=== PATIENT | male | born 1970 | race Caucasian/White ===

== ENCOUNTER 2016-07-13 19:19 | Observation (INO) | payer MEDICARE, MEDICAID ==
[~2016-07-13] VITALS: Ht 177.8 cm; Wt 63.5 kg
[2016-07-13] VITALS (10 sets, daily range): BP systolic 145–167; BP diastolic 92–113
[~2016-07-13 19:19] MED LIST: ABCT PO; ACHD5005 PO; AMIT75TA2 PO; ASP325T PO; ASP325TEC PO; ASP81CT PO; ASP81TEC PO; ASPI-875 PO; ASPI-892 PO; ASPI-9 PO; ASPI-906 PO; ATOR20TA66 PO; ATOR40TA PO; ATOR40TA70 PO; ATOR80TA2 PO; ATRV10T; BACL10TA PO; BACL20TA PO; BSP5T PO; BUSPIRONE 7.5MG PO; BUTA-234 PO; CALC-889 PO; CARV12.52 PO; CARV12.53 PO; CARV6.252 PO; CEPH500C PO; CHLO500T2 PO; CIPR500T78 PO; CITA40TA19 PO; CLIN300C11 PO; CLN150C PO; CLOP75TA PO; CLOP75TA28 PO; CLOP75TA69 PO; CLPD75T PO; CYCL10TA9 PO; CYCL5TAB11 PO; DESV50TA PO; DEXL30CA2 PO; DEXL60CA PO; DEXL60CA5 PO; DIAZ10TA PO; DICL75TA2 PO; DICY20TA10 PO; DIVA250T2 PO; DIVA250T4 PO; DIVA500T15 PO; DOXY100C2 PO; DULO30CA PO; ENXP100I SC; ESCI20TA2; FAMO40TA39 PO; FENO105T3 PO; FENO135C PO; FENO135C4 PO; FEXO180T PO; FL025NA25; FLUT50DI IH; FLUT9.9S NS; FNT25TD TD; FURO40TA4 PO; GABA-490 PO; GABA100C PO; GABA250S2 PO; GABA600T2 PO; GABA800T PO; GABA800T2 PO; GBPN100C PO; GBPN600T PO; GUAI400T35; HCT25T PO; HYDR-34 PO; HYDR-3714 PO; HYDR-3812 PO; HYDR-757 PO; HYOS0.1216 PO; IRON15TA3 PO; ISM30TCR PO; ISM60TCR PO; ISOS20TA73 PO; ISOS30TA3 PO; Isosorbide Mononitrate PO; KCL20TCR PO; LACT1CAP62 PO; LD5PT TOP; LEVO5TAB2; LEXAPRO; LIDO1ADH TP; LIDOCAINE; LIDOCAINE PATCH; LINA290C PO; LISI10TA2 PO; LISI20TA PO; LORA10CA PO; LSNP10T PO; LSNP20T PO; Levofloxacin PO; MELO-170 PO; META-84 PO; META800T PO; METH-313 PO; METH4TAB PO; METH750T3 PO; METO-351 PO; METO-354 PO; METO10TA3 PO; METO50TA7 PO; METR500T PO; MMT17NA NS; MULT-633 PO; NITR0.4T SL; NTR.4SL SL; OMEG1CAP24 PO; OMEP20CA12 PO; ONDA-42 SL; ONDA8TAB13 PO; ONDA8TAB6 PO; OSLT75CRX PO; OXYC-188 PO; OXYC-201 PO; OXYC-202 PO; OXYC-272; OXYC-272 PO; OXYC-471; OXYC15TA79 PO; OXYC1TAB19 PO; OXYC20TA4 PO; OXYC5TAB PO; OXYC80TA4; PANT20TA PO; PANT20TA2 PO; PANT40TA PO; PNT40TEC PO; POLY17PO6 PO; PRED10TA PO; PRED20TA PO; PREG50C PO; SCR1T PO; SCR1T1 PO; SENN1TAB27 PO; SULF1TAB35 PO; TIZA4TAB55 PO; TRAM-21 PO; TRAM50TA2 PO; TRI; UNKOWN CHOLESTEROL; VARE1TAB17 PO; VERA240C2 PO; VERA240T98 PO; VIT1TABL57 PO; VOLTAREN PO; ZLP10T; [UNRECOGNIZED DRUG - OTHER]; [UNRECOGNIZED DRUG - OTHER] PO; [UNRECOGNIZED DRUG - REMARK]
[2016-07-13] MEDS ORDERED: ASPIRIN 81 MG CHEW (CHILDREN'S ASA) PO ONE (19:30)
[2016-07-13 19:36] LABS: BASOPHILS % (AUTO) 0 % (0-10); EOSINOPHILS % (AUTO) 0 % (0-10); LYMPHOCYTES # (AUTO) 1.5 X 10^3 (1.0-4.0); LYMPHOCYTES % (AUTO) 20 % (12-44); MEAN CORPUSCULAR HEMOGLOBIN 28 PG (25-34); MEAN CORPUSCULAR HGB CONC 33 G/DL (32-36); MEAN CORPUSCULAR VOLUME 84 FL (80-99); MEAN PLATELET VOLUME 10.8 FL (7.4-10.4); MONOCYTES # (AUTO) 0.6 X 10^3 (0.0-1.0); MONOCYTES % (AUTO) 8 % (0-12); NEUTROPHILS # (AUTO) 5.4 X 10^3 (1.8-7.8); NEUTROPHILS % (AUTO) 71 % (42-75); PLATELET COUNT 235 10^3/uL (130-400); RED CELL DISTRIBUTION WIDTH 15.3 % (10.0-14.5); WHITE BLOOD COUNT 7.6 10^3/uL (4.3-11.0)
--- NOTE | 2016-07-13 19:38 | ED Chest Pain ---
General Chief Complaint: Chest Pain Stated Complaint: CHEST PAIN Nursing Triage Note: Pt to ED via [facility] from home. Pt reports sudden onset of CP at 1800 tonight. Pt reports pain 6/10at onset, pt now rating pain 2/10. 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 Nursing Sepsis Screen: No Definite Risk Source: patient Exam Limitations: no limitations History of Present Illness Time seen by provider: 19:36 Initial Comments Onset of substernal chest pressure at rest at 6 p.m. tonight. He took aspirin and nitroglycerin at home which helped his pain. He called 911. Aspirin here in stable condition by EMS. Pain is currently 2 out of 10. Allergies and Home Medications Allergies Coded Allergies: Penicillins (Verified Allergy, Unknown, 05/02/13) Shellfish (Verified Allergy, Unknown, 04/12/07) promethazine (Verified Adverse Reaction, Mild, 12/19/13) JITTERS/ LEG TWITCHING Home Medications Acetamin/Butalbital/Caffeine 1 Tab Tab, 1-2 TAB PO Q6H PRN for MIGRAINE, ( Reported) Aspirin 81 Mg Tab.chew, 81 MG PO DAILY, (Reported) Atorvastatin Calcium 40 Mg Tablet, 40 MG PO DAILY, (Reported) Baclofen 20 Mg Tablet, 20 MG PO TID, (Reported) Calcium Carbonate/Vitamin D3 1 Each Tab.chew, 1 EACH PO DAILY, (Reported) Clopidogrel Bisulfate 75 Mg Tablet, 75 MG PO DAILY, (Reported) Dicyclomine Hcl 20 Mg Tablet, 20 MG PO QID PRN for ABDOMINAL PAIN, (Reported) Fenofibric Acid (Choline) 135 Mg Capsule.dr, 135 MG PO DAILY, (Reported) Fluticasone Propionate 1 Disk Inhp, 2 PUFF IH BID, (Reported) Fluticasone Propionate 9.9 Ml [place].susp, 2 SPRAYS NS PRN, (Reported) Gabapentin 400 Mg Capsule, 400 MG PO TID, (Reported) Gabapentin 600 Mg Tablet, 600 MG PO TID, (Reported) Loratadine 10 Mg Capsule, 10 MG PO DAILY, (Reported) Metaxalone 800 Mg Tablet, 1 TAB PO TID, #90 (Reported) Methylprednisolone 4 Mg Tab.ds.pk, 4 MG PO UD, #1 Prescribed by: SARAH MACHADO on 06/02/151 Metoprolol Succinate 25 Mg Tab.er.24h, 25 MG PO DAILY, (Reported) Multivitamin 1 Each Tablet, 1 TAB PO DAILY, (Reported) Nitroglycerin 0.4 Mg Tab.subl, 0.4 MG SL UD PRN for CHEST PAIN, (Reported) TAKE 1 TABLET EVERY 5 MINUTES X 3 DOSES NEEDED FOR CHEST PAIN Ondansetron 8 Mg Tab.rapdis, 8 MG PO Q8H PRN for NAUSEA, (Reported) Oxycodone HCl 15 Mg Tablet, 15 MG PO QID, (Reported) Oxycodone HCl/Acetaminophen 1 Each Tablet, #60 (Reported) Pantoprazole Sod 40 Mg Tab, 40 MG PO DAILY, (Reported) Polyethylene Glycol 3350 17 Gm Powd.pack, 17 GM PO BID, (Reported) Sucralfate 1 Gm/10 Ml Susp, 10 ML PO QID, (Reported) Verapamil HCl 240 Mg Cap24h.pel, 240 MG PO DAILY, (Reported) Review of Systems Constitutional: no symptoms reported Respiratory: No Symptoms Reported Cardiovascular: Chest Pain Gastrointestinal: No Symptoms Reported Genitourinary: No Symptoms Reported Musculoskeletal: no symptoms reported All Other Systems Reviewed Negative Unless Noted: Yes Past Ltoauce-Oylsqq-Ffcutl Hx Patient Social History Alcohol Use: Denies Use Recreational Drug Use: No Smoking Status: Current Everyday Smoker Type Used: Cigarettes Former Smoker/When Quit: Jun 13, 2012 Recent Foreign Travel: No Contact w/Someone Who Travel: No Recent Infectious Disease Expo: No Recent Hopitalizations: No Immunizations Up To Date Tetanus Booster (TDap): More than 5yrs Date of Pneumonia Vaccine: Jun 09, 2009 Date of Influenza Vaccine: Dec 19, 2014 Seasonal Allergies Seasonal Allergies: No Surgeries HX Surgeries: Yes (iliac stents; R vascular femoral sx; sternum wires removed , back,L5 S1 ) Surgeries: Abdominal, Cardiac, CABG, Coronary Stent, Gallbladder, Open Heart Surgery, Orthopedic, Vascular Surgery Respiratory Hx Respiratory Disorders: Yes (WEARS CPAP) Respiratory Disorders: Sleep Apnea Cardiovascular Hx Cardiac Disorders: Yes (Cardiac stent x1, Iliac stents x3) Cardiac Disorders: Coronary Artery Disease, Deep Vein Thrombosis, Heart Attack , High Cholesterol, Hypertension, Peripheral Vascular Neurological Hx Neurological Disorders: Yes Neurological Disorders: Headaches /Migraines, Neuropathy Reproductive System Hx Reproductive Disorders: Yes (GYNECOMASTIA SURGERY WHEN 10 YEARS OLD) Sexually Transmitted Disease: No HIV/AIDS: No Genitourinary Hx Genitourinary Disorders: No Gastrointestinal Gastrointestinal Disorders: Gastroesophageal Reflux, Irritable Bowel Musculoskeletal Hx Musculoskeletal Disorders: Yes (osteoarthritis, L3-S1 herniated disc, Chronic chest wall pain) Musculoskeletal Disorders: Degenerate Disk Disease, Osteoporosis, Arthritis, Back Injury, Chronic Back Pain Endocrine Hx Endocrine Disorders: No HEENT HX ENT Disorders: Yes (RIGHT EYE MACULAR DEGENERATION, WEARS GLASSES) HEENT Disorders: Cataract, Macular Degeneration Loss of Vision: Bilateral Hearing Impairment: Denies Cancer Hx Cancer: No Psychosocial Hx Psychiatric Problems: Yes Behavioral Health Disorders: Anxiety Integumentary HX Skin/Integumentary Disorder: No Blood Transfusions Hx Blood Disorders: No Adverse Reaction to a Blood Tr: No Reviewed Nursing Assessment Reviewed/Agree w Nursing PMH: Yes Family Medical History Significant Family History: No Pertinent Family Hx, Heart Disease, Diabetes, Hypertension Family Medial History: Cardiovascular disease 19 FATHER Completed stroke 19 FATHER Diabetes mellitus 19 FATHER 19 MOTHER Myocardial infarction 19 MOTHER TIAs 19 MOTHER Thyroid disease 19 MOTHER Physical Exam Vital Signs Vital Sign - Last 12Hours Capillary Refill : Less Than 3 Seconds General Appearance: No Apparent Distress, WD/WN HEENT: PERRL/EOMI, Pharynx Normal Neck: Supple Respiratory: Lungs Clear, Normal Breath Sounds Cardiovascular: Regular Rate, Rhythm, No Edema Gastrointestinal: Non Tender, Soft Extremity: Normal Inspection, Normal Range of Motion Neurologic/Psychiatric: Alert, No Motor/Sensory Deficits Skin: Normal Color, Warm/Dry Progress/Results/Core Measures Results/Orders Lab Results Laboratory Tests Test 07/13/16 19:24 Range/Units White Blood Count 7.6 4.3-11.0 10^3/uL Red Blood Count 5.30 4.35-5.85 10^6/uL Hemoglobin 14.8 13.3-17.7 G/DL Hematocrit 45 40-54 % Mean Corpuscular Volume 84 80-99 FL Mean Corpuscular Hemoglobin 28 25-34 PG Mean Corpuscular Hemoglobin Concent 33 32-36 G/DL Red Cell Distribution Width 15.3 H 10.0-14.5 % Platelet Count 235 130-400 10^3/uL Mean Platelet Volume 10.8 H 7.4-10.4 FL Neutrophils (%) (Auto) 71 42-75 % Lymphocytes (%) (Auto) 20 12-44 % Monocytes (%) (Auto) 8 0-12 % Eosinophils (%) (Auto) 0 0-10 % Basophils (%) (Auto) 0 0-10 % Neutrophils # (Auto) 5.4 1.8-7.8 X 10^3 Lymphocytes # (Auto) 1.5 1.0-4.0 X 10^3 Monocytes # (Auto) 0.6 0.0-1.0 X 10^3 Eosinophils # (Auto) 0.0 0.0-0.3 10^3/uL Basophils # (Auto) 0.0 0.0-0.1 10^3/uL Prothrombin Time 13.7 12.2-14.7 SEC INR Comment 1.1 0.8-1.4 Activated Partial Thromboplast Time 23 L 24-35 SEC Sodium Level 142 135-145 MMOL/L Potassium Level 3.6 3.6-5.0 MMOL/L Chloride Level 108 H 98-107 MMOL/L Carbon Dioxide Level 22 21-32 MMOL/L Anion Gap 12 5-14 MMOL/L Blood Urea Nitrogen 16 7-18 MG/DL Creatinine 1.00 0.60-1.30 MG/DL Estimat Glomerular Filtration Rate > 60 BUN/Creatinine Ratio 16 Glucose Level 92 70-105 MG/DL Calcium Level 9.5 8.5-10.1 MG/DL Magnesium Level 2.3 1.8-2.4 MG/DL Total Bilirubin 0.6 0.1-1.0 MG/DL Aspartate Amino Transf (AST/SGOT) 11 5-34 U/L Alanine Aminotransferase (ALT/SGPT) 16 0-55 U/L Alkaline Phosphatase 87 40-136 U/L Troponin I < 0.30 <0.30 NG/ML Total Protein 7.5 6.4-8.2 G/DL Albumin 4.6 H 3.2-4.5 G/DL My Orders Orders - CASSANDRA CARPENTER MD Cbc With Automated Diff (07/13/16 19:29) Magnesium (07/13/16 19:29) Chest 1 View, Ap/Pa Only (07/13/16 19:29) Ekg Tracing (07/13/16 19:29) Cardiac Profile 1 (07/13/16 19:29) Comprehensive Metabolic Panel (07/13/16 19:29) Protime With Inr (07/13/16 19:29) Partial Thromboplastin Time (07/13/16 19:29) O2 (07/13/16 19:29) Monitor-Rhythm Ecg Trace Only (07/13/16 19:29) Aspirin Chewable Tablet (Baby Aspirin Ch (07/13/16 19:30) Saline Lock/Iv-Start (07/13/16 19:29) Vital Signs/I&O Vital Sign - Last 12Hours 07/13/16 07/13/16 07/13/16 19:23 19:23 19:23 Temp 100.0 Pulse 61 Resp 18 B/P (MAP) 148/112 Pulse Ox 100 100 O2 Delivery Room Air Room Air Room Air Blood Pressure Mean: 124 ECG Initial ECG Rhythm: Normal Sinus Initial ECG Intervals: Normal Initial ECG Impression: Nonspecific Changes Diagnostic Imaging Comments CXR NAD Departure Communication Time/Spoke to Admitting Phy: 20:[address] MARROQUIN ([facility]) ADMIT Impression Impression: Primary Impression: Chest pain Disposition: ADMITTED INPATIENT Condition: Stable Decision to Admit Reason: Admit from ER (General) Decision to Admit/Date: July 14, 2016 Time/Decision to Admit Time: 20:00 Departure-Patient Inst. Referrals: JOSELINE SANCHEZ MD (PCP/Family) Primary Care Physician CASSANDRA CARPENTER MD July 13, 2016 19:38
[2016-07-13 19:41] LABS: INR 1.1 (0.8-1.4); PROTHROMBIN TIME PATIENT 13.7 SEC (12.2-14.7)
--- NOTE | 2016-07-13 19:44 | Diagnostic Imaging Report ---
INDICATION: Anterior chest wall pain Portable upright view of the chest demonstrates previous surgical changes. The heart size and vascularity are normal. Lungs are clear but slightly hyperexpanded, possible COPD. There are no pleural effusions. Postoperative changes are present in the cervical spine. IMPRESSION: Stable postoperative changes. The lungs are clear but hyperexpanded, possible underlying COPD. Dictated by: Dictated on workstation # [id number]
[2016-07-13 20:11] LABS: ALANINE AMINOTRANSFERASE 16 U/L (0-55); ALBUMIN 4.6 G/DL (3.2-4.5); ANION GAP 12 MMOL/L (5-14); ASPARTATE AMINO TRANSFERASE 11 U/L (5-34); BILIRUBIN,TOTAL 0.6 MG/DL (0.1-1.0); BLOOD UREA NITROGEN 16 MG/DL (7-18); BUN/CREATININE RATIO 16; CALCIUM 9.5 MG/DL (8.5-10.1); CARBON DIOXIDE 22 MMOL/L (21-32); CHLORIDE 108 MMOL/L (98-107); GFR ESTIMATED > 60; GLUCOSE 92 MG/DL (70-105); MAGNESIUM 2.3 MG/DL (1.8-2.4); POTASSIUM 3.6 MMOL/L (3.6-5.0); TOTAL PROTEIN 7.5 G/DL (6.4-8.2)
[2016-07-13 20:34] LABS: SODIUM 142 MMOL/L (135-145)
[2016-07-13] MEDS ORDERED: NITROGLYCERIN SUBLINGUAL 0.4 MG TAB (NITROSTAT) SL PRN (21:15)
[2016-07-13] MEDS ORDERED: CATHETER FLUSH 10 ML SYR IV PRN (21:15)
[2016-07-13] MEDS ORDERED: ATORVASTATIN 40 MG (LIPITOR) TABLET PO ONE (21:28)
[2016-07-13] MEDS ORDERED: GABAPENTIN 400 MG (NEURONTIN) CAP ONE (21:28)
[2016-07-13] MEDS ORDERED: GABAPENTIN 600 MG (NEURONTIN) TAB ONE (21:29)
[2016-07-13] MEDS ORDERED: oxyCODONE ER 20 MG (OxyCONTIN CR) TAB PO ONE (21:34)
[2016-07-13] MEDS: CATHETER FLUSH 10 ML SYR IV SCH (21:41)
[2016-07-13] MEDS ORDERED: toPIRamate 25 MG (TOPAMAX) TAB PO PRN (22:45)
[2016-07-13] MEDS ORDERED: VERAPAMIL PM 100 MG (VERELAN PM) CAP.SR.24H PO ONE (22:45)
[2016-07-14] VITALS (8 sets, daily range): BP systolic 135–160; BP diastolic 81–105
[2016-07-14] MEDS: CATHETER FLUSH 10 ML SYR IV SCH ×2 (06:31→14:15)
[2016-07-14] MEDS ORDERED: ASPIRIN E.C. 325 MG (ECOTRIN) TABLET PO SCH (09:00)
--- NOTE | 2016-07-14 11:03 | Discharge Instructions ---
Discharge [facility] Discharge Medications New, Converted or Re-Newed RX: Other Continued Medications: Acetamin/Butalbital/Caffeine (Fioricet) 1 Tab Tab 1-2 TAB PO Q6H PRN for MIGRAINE Aspirin (Helen Chewable) 81 Mg Tab.chew 81 MG PO DAILY Atorvastatin Calcium (Atorvastatin Calcium) 40 Mg Tablet 40 MG PO DAILY, TAB Baclofen (Baclofen) 20 Mg Tablet 20 MG PO TID, TAB Calcium Carbonate/Vitamin D3 (Calcium 500 mg Chewable Tablet) 1 Each Tab.chew 1 EACH PO DAILY, TAB Clopidogrel Bisulfate (Plavix) 75 Mg Tablet 75 MG PO DAILY, TAB Dicyclomine Hcl (Dicyclomine Hcl) 20 Mg Tablet 20 MG PO QID PRN for ABDOMINAL PAIN Fenofibric Acid (Choline) (Trilipix) 135 Mg Capsule.dr 135 MG PO DAILY, CAP Fluticasone Propionate (Flovent Diskus 50 mcg) 1 Disk Inhp 2 PUFF IH BID, PUFF Fluticasone Propionate (Flonase Allergy Relief) 9.9 Ml [place].susp 2 SPRAYS NS PRN, SPRAY Gabapentin (Gabapentin) 400 Mg Capsule 400 MG PO TID, CAP Gabapentin (Gabapentin) 600 Mg Tablet 600 MG PO TID, TAB Loratadine (Claritin) 10 Mg Capsule 10 MG PO DAILY, CAP Metaxalone (Metaxalone) 800 Mg Tablet 1 TAB PO TID, #90 Methylprednisolone (Medrol) 4 Mg Tab.ds.pk 4 MG PO UD, #1 PKG Metoprolol Succinate (Toprol Xl) 25 Mg Tab.er.24h 25 MG PO DAILY, TAB Multivitamin (Daily Value) 1 Each Tablet 1 TAB PO DAILY, TAB Nitroglycerin (Nitroquick) 0.4 Mg Tab.subl 0.4 MG SL UD PRN for CHEST PAIN TAKE 1 TABLET EVERY 5 MINUTES X 3 DOSES NEEDED FOR CHEST PAIN Ondansetron (Ondansetron Odt) 8 Mg Tab.rapdis 8 MG PO Q8H PRN for NAUSEA Oxycodone HCl (Oxycodone HCl) 15 Mg Tablet 15 MG PO QID, TAB Oxycodone HCl/Acetaminophen (Oxycodone-Acetaminophen 5-325) 1 Each Tablet #60 Pantoprazole Sod (Protonix Tab) 40 Mg Tab 40 MG PO DAILY Polyethylene Glycol 3350 (Miralax) 17 Gm Powd.pack 17 GM PO BID, EACH Sucralfate (Carafate Susp) 1 Gm/10 Ml Susp 10 ML PO QID Verapamil HCl (Verapamil ER) 240 Mg Cap24h.pel 240 MG PO DAILY, CAP Patient Instructions Goal/Follow Up Appt: [facility] N[facility]SE WILL CALL YOU ON Thursday TO SCHEDULE AN APPOINTMENT WITH DR SANCHEZ. YOU NEED TO CALL DR VELASQUEZ'S OFFICE ON Thursday TO SCHEDULE AN APPOINTMENT WITH HIM. Patient Instructions: TAKE ALL MEDICATIONS PRESCRIBED. Return to The Hospital For: RECURRENT CHEST PAIN, SHORTNESS OF BREATH Activity & Diet Discharge Diet: ADA Diet, Low Fat/Low Cholesterol Activity as Tolerated: Yes Orders-Post D/C & Referrals Pneu Vac Indicated: Yes Copy Copies To 1: JOSELINE SANCHEZ MD, JULIE A MD July 14, 2016 11:03
--- NOTE | 2016-07-14 11:04 | Short Stay Summary ---
HPI History of Present Illness: 46yo gentleman presented to ER last night with complaints of chest pain. States he had it 2 weeks ago while walking. Then didn't have it again until last night. States he was sitting there when he got the chest pain last night. Had a sharp feelin in the left side of his chest. Took NTG 3 times and felt better after each time. Did not feel nauseated but was short of breath. Eloy is a known vasculopath and most recently had a cath for PAD with stenting in 2014. Has multiple stents in his heaert as well. Was meant to have an appointment with Dr Dorantes last week but missed it when he fell asleep at home. Source: patient Exam Limitations: no limitations Date seen by provider: July 14, 2016 Attending Physician Shayna Duong MD PCP Joseline Sanchez MD Consult Dr Macdonald Date of Admission July 13, 2016 at 20:25 Home Medications Home Medications Reviewed patient Home Medication Reconciliation Form Allergies Coded Allergies: Penicillins (Verified Allergy, Unknown, 05/02/13) Shellfish (Verified Allergy, Unknown, 04/12/07) promethazine (Verified Adverse Reaction, Mild, 12/19/13) JITTERS/ LEG TWITCHING NCD-[id number]-Owsyyx Hx Patient Social History Alcohol Use: Denies Use Recreational Drug Use: No Smoking Status: Current Everyday Smoker Former smoker/When Quit: Jun 13, 2012 Type Used: Cigarettes Recent Foreign Travel: No Contact w/other who traveled: No Recent Hopitalizations: No Recent Infectious Disease Expo: No Physical Abuse Screen: No Sexual Abuse: No Immunizations Up To Date Tetanus Booster (TDap): More than 5yrs Date of Pneumonia Vaccine: Jun 09, 2009 Date of Influenza Vaccine: Dec 19, 2014 Family Medical History Significant Family History: No Pertinent Family Hx, Heart Disease, Diabetes, Hypertension Family History: Cardiovascular disease 19 FATHER Completed stroke 19 FATHER Diabetes mellitus 19 FATHER 19 MOTHER Myocardial infarction 19 MOTHER TIAs 19 MOTHER Thyroid disease 19 MOTHER Review of Systems (CHC) Constitutional: no symptoms reported All Other Systems Reviewed Negative Unless Noted: Yes (Negative excepted noted.) Reviewed Test Results Reviewed Test Results Lab Laboratory Tests Test 07/13/16 19:24 07/14/16 01:21 07/14/16 07:05 Range/Units White Blood Count 7.6 4.3-11.0 10^3/uL Red Blood Count 5.30 4.35-5.85 10^6/uL Hemoglobin 14.8 13.3-17.7 G/DL Hematocrit 45 40-54 % Mean Corpuscular Volume 84 80-99 FL Mean Corpuscular Hemoglobin 28 25-34 PG Mean Corpuscular Hemoglobin Concent 33 32-36 G/DL Red Cell Distribution Width 15.3 H 10.0-14.5 % Platelet Count 235 130-400 10^3/uL Mean Platelet Volume 10.8 H 7.4-10.4 FL Neutrophils (%) (Auto) 71 42-75 % Lymphocytes (%) (Auto) 20 12-44 % Monocytes (%) (Auto) 8 0-12 % Eosinophils (%) (Auto) 0 0-10 % Basophils (%) (Auto) 0 0-10 % Neutrophils # (Auto) 5.4 1.8-7.8 X 10^3 Lymphocytes # (Auto) 1.5 1.0-4.0 X 10^3 Monocytes # (Auto) 0.6 0.0-1.0 X 10^3 Eosinophils # (Auto) 0.0 0.0-0.3 10^3/uL Basophils # (Auto) 0.0 0.0-0.1 10^3/uL Prothrombin Time 13.7 12.2-14.7 SEC INR Comment 1.1 0.8-1.4 Activated Partial Thromboplast Time 23 L 24-35 SEC Sodium Level 142 135-145 MMOL/L Potassium Level 3.6 3.6-5.0 MMOL/L Chloride Level 108 H 98-107 MMOL/L Carbon Dioxide Level 22 21-32 MMOL/L Anion Gap 12 5-14 MMOL/L Blood Urea Nitrogen 16 7-18 MG/DL Creatinine 1.00 0.60-1.30 MG/DL Estimat Glomerular Filtration Rate > 60 BUN/Creatinine Ratio 16 Glucose Level 92 70-105 MG/DL Calcium Level 9.5 8.5-10.1 MG/DL Magnesium Level 2.3 1.8-2.4 MG/DL Total Bilirubin 0.6 0.1-1.0 MG/DL Aspartate Amino Transf (AST/SGOT) 11 5-34 U/L Alanine Aminotransferase (ALT/SGPT) 16 0-55 U/L Alkaline Phosphatase 87 40-136 U/L Troponin I < 0.30 < 0.30 < 0.30 <0.30 NG/ML Total Protein 7.5 6.4-8.2 G/DL Albumin 4.6 H 3.2-4.5 G/DL Physical Exam-(CHC) Physical Exam Vital Signs VS - Last 72 Hours, by Label 07/13/16 07/13/16 07/13/16 07/13/16 19:23 19:23 19:23 20:44 Temp 100.0 100.0 Pulse 61 52 Resp 18 18 B/P (MAP) 148/112 Pulse Ox 100 100 100 O2 Delivery Room Air Room Air Room Air 07/13/16 07/13/16 07/13/16 07/13/16 20:49 20:52 21:00 21:15 Temp 98.4 Pulse 73 65 65 62 B/P (MAP) 145/109 154/101 145/113 Pulse Ox 100 96 100 07/13/16 07/13/16 07/13/16 07/13/16 21:30 21:45 22:00 22:15 Pulse 57 70 58 61 B/P (MAP) 149/97 167/111 164/108 165/96 Pulse Ox 100 100 100 100 07/13/16 07/13/16 07/13/16 07/14/16 22:30 22:45 23:00 00:00 Pulse 74 67 67 75 B/P (MAP) 160/106 158/92 161/100 157/105 Pulse Ox 98 98 98 97 07/14/16 07/14/16 07/14/16 07/14/16 00:00 00:00 01:00 01:00 Temp 98.0 Pulse 72 72 B/P (MAP) 146/81 Pulse Ox 97 99 07/14/16 07/14/16 07/14/16 07/14/16 02:00 03:00 04:00 04:00 Temp 97.6 Pulse 55 58 58 B/P (MAP) 142/94 136/89 149/102 Pulse Ox 98 98 100 07/14/16 07/14/16 07/14/16 04:00 07:00 08:00 Temp 97.3 Pulse 59 63 Resp 18 B/P (MAP) 160/100 Pulse Ox 98 99 Capillary Refill : Less Than 3 Seconds General Appearance: WD/WN, no apparent distress HEENT: PERRL/EOMI, normal ENT inspection, pharynx normal Neck: non-tender, full range of motion, supple, normal inspection Respiratory: lungs clear, normal breath sounds, no respiratory distress, no accessory muscle use Cardiovascular: regular rate, rhythm, no edema, no gallop, no JVD, no murmur Gastrointestinal: normal bowel sounds, non tender, soft, no organomegaly, no pulsatile mass Extremities: normal range of motion, non-tender, normal inspection, no pedal edema, no calf tenderness, normal capillary refill Neurologic/Psychiatric: manager research II-XII nml as tested, no motor/sensory deficits, alert, normal mood/affect, oriented x 3 Skin: normal color, warm/dry Short Stay Diagnosis Discharge Diagnosis-Short Stay Admission Diagnosis STABLE ANGINA KNOWN CAD DIABETES TYPE 2 CHRONIC PAIN PAD Final Discharge Diagnosis SAME Conclusion Plan Patient was admitted due to known CAD and anginal symptoms. At this point, he has had no EKG changes and no rise in his troponin. Have consulted Dr Macdonald who plans for stress test tomorrow. Will DC in prep for outpatine stress test. Patient will also follow up at [facility] for continued chronic care management. Clinical Quality Measures AMI/AHF: ASA po Prior to arrival: Yes (324MG SELF-ADMINISTERED) DVT/VTE Risk/Contraindication: Risk Factor Score Per Nursin RFS Level Per Nursing on Admit: 4+=Very High Copy Copies To 1: JOSELINE SANCHEZ MD, JULIE A MD July 14, 2016 11:04 am
--- NOTE | 2016-07-14 12:46 | Consultation-Cardiology ---
HPI-Cardiology Cardiology Consultation: Date of Consultation 07/14/16 Date of Admission Attending Physician Shayna Duong MD Admitting Physician Dennise Huerta MD Consulting Physician Brooke MACDONALD MD HPI: Chief Complaint: chest pain this is a 46-year-old gentleman who was previously a patient of Dr. Olvera but is transitioning his care to Dr. Dorantes. He has known history of PAD, status post DEALER SALES MANAGER/stent to the right common and external iliac artery and balloon angioplasty to the left common iliac artery done by myself in 12/2014. He also has history of coronary artery disease and CABG, ALEX to the LAD and saphenous vein graft to the RCA done in the past. He is an active smoker. He presents with prolonged chest pain episode which is relieved with 3 nitroglycerin. The chest pain is moderate in intensity and substernal in nature with no radiation. There are no exacerbating factors however it was relieved with nitroglycerin. It has not recurred for the last 24 hours. He had self discontinued his antiplatelet therapy. Review of Systems-Cardiology Review of Systems Constitutional: No As described under HPI, No no symptoms reported, No chills, No fever, No lightheadedness, No malaise, No tiredness, No weight loss, No weight gain, No other Eyes: No As described under HPI, No no symptoms reported, No blindness, No blurred vision, No contact lenses, No drainage, No decreased acuity, No foreign body sensation, No glasses, No inflammation, No pain, No photophobia, No previous injury, No shadows, No tunnel vision, No other, No vision change Ears/Nose/Throat: No As described under HPI, No no symptoms reported, No chronic hearing loss, No epistaxis, No ear discharge, No ear pain, No loose teeth, No mouth pain, No mouth swelling, No nasal drainage, No nose pain, No recent hearing loss, No throat pain, No throat swelling, No ulcerations, No other Respiratory: No no symptoms reported, No As described under HPI, No cough, No orthopnea, No shortness of breath, No SOB with excertion, No SOB at rest, No stridor, No wheezing, No other Cardiovascular: No no symptoms reported, No As described under HPI, chest pain , No edema, No irregular heart rate, No lightheadedness, No palpitations, No syncope, No other Gastrointestinal: No no symptoms reported, No As described under HPI, No abdomen distended, No abdominal pain, No blood streaked bowels, No constipation , No diarrhea, No difficulty swallowing, No nausea, No poor appetite, No poor fluid intake, No rectal bleeding, No vomiting, No other, No nausea/vomiting/ diarrhea, No stool coloration changes Genitourinary: No no symptoms reported, No As described under HPI, No burning, No dysuria, No discharge, No frequency, No flank pain, No hematuria, No incontinence, No pain, No urgency, No other, No urine frequency changes, No urine coloration changes Musculoskeletal: No no symptoms reported, No As describe under HPI, No back pain, No gout, No joint pain, No joint swelling, No muscle pain, No muscle stiffness, No neck pain, No other Skin: No no symptoms reported, No As described under HPI, No change in color, No change in hair/nails, No dryness, No lesions, No lumps, No rash, No other, No skin related problems, No ulcerations, No rash on exposed areas, No ulcerations on exposed areas Psychiatric/Neurological: No As described under HPI, No anxiety, No depression , No emotional problems, No focal weakness, No headache, No no symptoms reported , No numbness, No other, No pre-existing deficit, No seizure, No syncope, No tingling, No tremors, No weakness All Other Systems Reviewed Negative Unless Noted: Yes IAC-Gmndry-Sjnmsg Hx Patient Social History Alcohol Use: Denies Use Recreational Drug Use: No Smoking Status: Current Everyday Smoker Former smoker/When Quit: Jun 13, 2012 Type Used: Cigarettes Recent Foreign Travel: No Recent Infectious Disease Expo: No Physical Abuse Screen: No Sexual Abuse: No Immunizations Up To Date Tetanus Booster (TDap): More than 5yrs Date of Pneumonia Vaccine: Jun 09, 2009 Date of Influenza Vaccine: Dec 19, 2014 Past Medical History PMH As described under Assessment. Family Medical History Family History: Cardiovascular disease 19 FATHER Completed stroke 19 FATHER Diabetes mellitus 19 FATHER 19 MOTHER Myocardial infarction 19 MOTHER TIAs 19 MOTHER Thyroid disease 19 MOTHER Allergies and Home Medications Allergies Coded Allergies: Penicillins (Verified Allergy, Unknown, 05/02/13) Shellfish (Verified Allergy, Unknown, 04/12/07) promethazine (Verified Adverse Reaction, Mild, 12/19/13) JITTERS/ LEG TWITCHING Home Medications Acetamin/Butalbital/Caffeine 1 Tab Tab, 1-2 TAB PO Q6H PRN for MIGRAINE, ( Reported) Aspirin 81 Mg Tab.chew, 81 MG PO DAILY, (Reported) Atorvastatin Calcium 40 Mg Tablet, 40 MG PO DAILY, (Reported) Baclofen 20 Mg Tablet, 20 MG PO TID, (Reported) Calcium Carbonate/Vitamin D3 1 Each Tab.chew, 1 EACH PO DAILY, (Reported) Clopidogrel Bisulfate 75 Mg Tablet, 75 MG PO DAILY, (Reported) Dicyclomine Hcl 20 Mg Tablet, 20 MG PO QID PRN for ABDOMINAL PAIN, (Reported) Fenofibric Acid (Choline) 135 Mg Capsule.dr, 135 MG PO DAILY, (Reported) Fluticasone Propionate 1 Disk Inhp, 2 PUFF IH BID, (Reported) Fluticasone Propionate 9.9 Ml [place].susp, 2 SPRAYS NS PRN, (Reported) Gabapentin 400 Mg Capsule, 400 MG PO TID, (Reported) Gabapentin 600 Mg Tablet, 600 MG PO TID, (Reported) Loratadine 10 Mg Capsule, 10 MG PO DAILY, (Reported) Metaxalone 800 Mg Tablet, 1 TAB PO TID, #90 (Reported) Methylprednisolone 4 Mg Tab.ds.pk, 4 MG PO UD, #1 Prescribed by: SARAH MACHADO on 06/02/151 Metoprolol Succinate 25 Mg Tab.er.24h, 25 MG PO DAILY, (Reported) Multivitamin 1 Each Tablet, 1 TAB PO DAILY, (Reported) Nitroglycerin 0.4 Mg Tab.subl, 0.4 MG SL UD PRN for CHEST PAIN, (Reported) TAKE 1 TABLET EVERY 5 MINUTES X 3 DOSES NEEDED FOR CHEST PAIN Ondansetron 8 Mg Tab.rapdis, 8 MG PO Q8H PRN for NAUSEA, (Reported) Oxycodone HCl 15 Mg Tablet, 15 MG PO QID, (Reported) Oxycodone HCl/Acetaminophen 1 Each Tablet, #60 (Reported) Pantoprazole Sod 40 Mg Tab, 40 MG PO DAILY, (Reported) Polyethylene Glycol 3350 17 Gm Powd.pack, 17 GM PO BID, (Reported) Sucralfate 1 Gm/10 Ml Susp, 10 ML PO QID, (Reported) Verapamil HCl 240 Mg Cap24h.pel, 240 MG PO DAILY, (Reported) Physical Exam-Cardiology Physical Exam Vital Signs/I&O Vital Sign - Last 12Hours 07/14/16 07/14/16 07/14/16 07/14/16 01:00 01:00 02:00 03:00 Pulse 72 72 55 58 B/P (MAP) 146/81 142/94 136/89 Pulse Ox 99 98 98 07/14/16 07/14/16 07/14/16 07/14/16 04:00 04:00 04:00 07:00 Temp 97.6 Pulse 58 59 B/P (MAP) 149/102 Pulse Ox 100 98 07/14/16 08:00 Temp 97.3 Pulse 63 Resp 18 B/P (MAP) 160/100 Pulse Ox 99 Intake and Output 07/14/16 00:00 Intake Total 350 ml Balance 350 ml Capillary Refill : Less Than 3 Seconds Constitutional: No appears stated age, No AAO x 3, No apparent distress, No PERRL, No well-developed, No well-nourished, No other HEENT: No PERRL, No normal ENT inspection, No TMs normal, No pharynx normal, No scleral icterus (R), No scleral icterus (L), No pale conjunctivae (R), No pale conjunctivae (L), No photophobia, No TM abnormal (R), No TM abnormal (L), No pharyngeal erythema, No tonsillar exudate, No other, No discharge, No EOMI, No hearing is well preserved, No hard of hearing, No oral hygience is good, No ulceration, No xanthelasmas are seen Neck: No non-tender, No full range of motion, No supple, No normal inspection, No carotid bruit, No limited range of motion, No lymphadenopathy (R), No lymphadenopathy (L), No tender lateral, No tender midline, No thyromegaly, No other, No carotid pulses are 2 + bilaterally, No with good upstrokes Respiratory: No accessory muscle use, No respiratory distress, No chest tender , No chest expansion is symmetric, No chest is bilaterally symmetric, No lungs clear to percussion, No lungs clear to auscultation, No crackles, No rhonchi, No rales, No stridor, No wheezing, No pleural rub, No other Cardiovascular: No regular rate-rhythm, No irregularly irregular, No extra beats, No parasternal heave is noted, No JVD, No edema, No bradycardia, No tachycardia, No point of maximal impulse, No cardiac thrills are palpable, No S1 and S2, No gallop/S3, No gallop/S4, No diastolic murmur, No systolic murmur, No friction rub, No click, No other Gastrointestinal: No tender, No soft, No round, No distended, No pulsatile mass , No organomegaly, No guarding, No rebound, No tenderness, No hernia, No mass, No audible bowel sounds, No abnormal bowel sounds, No abdominal bruits, No spleenomegaly, No other Rectal: deferred Extremities: No normal range of motion, No non-tender, No normal inspection, No pedal edema, No calf tenderness, No normal capillary refill, No pelvis stable , No calf tenderness, No inflammation, No pedal edema, No slow capillary refill , No swelling, No other, No abrasion, No clubbing, No cyanosis, No ecchymosis, No laceration, No no lower extremity edema bilateral, No significant edema, No tenderness, No wound Neurologic/Psychiatric: No beck operator II-XII nml as tested, No no motor/sensory deficits, No alert, No normal mood/affect, No oriented x 3, No abnormal cerebellar tests, No abnormal beck operator II-XII, No abnormal gait, No aphasia, No EOM palsy, No facial droop, No motor weakness, No sensory deficit, No depressed affect, No disoriented x 3, No other, No grossly intact, No power is 5/5 both on sides Data Review Labs Laboratory Tests 07/13/16 19:24: White Blood Count 7.6, Red Blood Count 5.30, Hemoglobin 14.8, Hematocrit 45, Mean Corpuscular Volume 84, Mean Corpuscular Hemoglobin 28, Mean Corpuscular Hemoglobin Concent 33, Red Cell Distribution Width 15.3H, Platelet Count 235, Mean Platelet Volume 10.8H, Neutrophils (%) (Auto) 71, Lymphocytes (%) (Auto) 20 , Monocytes (%) (Auto) 8, Eosinophils (%) (Auto) 0, Basophils (%) (Auto) 0, Neutrophils # (Auto) 5.4, Lymphocytes # (Auto) 1.5, Monocytes # (Auto) 0.6, Eosinophils # (Auto) 0.0, Basophils # (Auto) 0.0, Prothrombin Time 13.7, INR Comment 1.1, Activated Partial Thromboplast Time 23L, Sodium Level 142, Potassium Level 3.6, Chloride Level 108H, Carbon Dioxide Level 22, Anion Gap 12 , Blood Urea Nitrogen 16, Creatinine 1.00, Estimat Glomerular Filtration Rate > 60, BUN/Creatinine Ratio 16, Glucose Level 92, Calcium Level 9.5, Magnesium Level 2.3, Total Bilirubin 0.6, Aspartate Amino Transf (AST/SGOT) 11, Alanine Aminotransferase (ALT/SGPT) 16, Alkaline Phosphatase 87, Troponin I < 0.30, Total Protein 7.5, Albumin 4.6H 07/14/16 01:21: Troponin I < 0.30 07/14/16 07:05: Troponin I < 0.30 ECG Impression ECG Initial ECG Rhythm: S.Derrell Initial ECG Impression: Nonspecific Changes A/P-Cardiology Assessment/Admission Diagnosis 1. Chest pain, history of coronary artery disease/CABG. 2. PAD status post previous DEALER SALES MANAGER/stent. 3. Active smoking Plan 1. Chest pain, history of coronary artery disease/CABG: start aspirin, statin, lisinopril, beta john. acute coronary syndrome has been ruled out with negative troponin and negative EKG. We will schedule him for a stress test. If the stress test is abnormal he will require coronary angiography. Stress test will be performed tomorrow. he can be discharged and will come in for a stress test tomorrow. He has been strongly recommended to seek immediate medical attention if he has recurrent chest pain. 2. PAD status post previous DEALER SALES MANAGER/stent: aspirin, statin. No active claudication. 3. Active smoking: smoking cessation strongly recommended. Thank you for your consultation. Please call me if you have any questions. Jignesh Macdonald MD, FACP, FACC, FSCAI, FHRS, CCDS Interventional Cardiology Cardiac Electrophysiology Vascular Medicine and Endovascular Interventions Clinical Quality Measures AMI/AHF: ASA po Prior to arrival: Yes (324MG SELF-ADMINISTERED) DVT/VTE Risk/Contraindication: Risk Factor Score Per Nursin RFS Level Per Nursing on Admit: 4+=Very High Brooke MACDONALD MD July 14, 2016 12:46 pm
[2016-07-14] MEDS ORDERED: ATOR40TA PO (14:03)
[2016-07-14] MEDS ORDERED: LISI-556 PO (14:03)
[2016-07-14] MEDS ORDERED: oxyCODONE ER 20 MG (OxyCONTIN CR) TAB PO SCH (21:00)
[2016-07-14] MEDS ORDERED: ATORVASTATIN 40 MG (LIPITOR) TABLET PO SCH (21:00)
[2016-07-14] MEDS ORDERED: SUCRALFATE 1 GM (CARAFATE) TAB PO SCH (21:30)
[2016-07-14] MEDS ORDERED: GABAPENTIN 600 MG (NEURONTIN) TAB PO SCH (21:30)
[2016-07-14] MEDS ORDERED: GABAPENTIN 400 MG (NEURONTIN) CAP PO SCH (21:30)
== END 2016-07-14 10:58 | disposition home or self-care (01) ==
LOC: EDUNIT# 19:19 → ER 19:20 → UNDOADMOB 20:25 → ICU 20:25 → UNDODISOB 07-14 14:45
PROVIDERS: ADMIT Pediatrics; ATTEND Pediatrics
DX: I25.119 Atherosclerotic heart disease of native coronary artery with unspecified angina pectoris (principal); E11.9 Type 2 diabetes mellitus without complications; G89.29 Other chronic pain; I73.9 Peripheral vascular disease, unspecified; F17.210 Nicotine dependence, cigarettes, uncomplicated; G47.30 Sleep apnea, unspecified; I10 Essential (primary) hypertension; K21.9 Gastro-esophageal reflux disease without esophagitis; Z95.5 Presence of coronary angioplasty implant and graft; Z95.820 Peripheral vascular angioplasty status with implants and grafts; Z95.1 Presence of aortocoronary bypass graft
CPT/HCPCS: 36415; 71010; 80053; 83735; 84484; 85025; 85610; 85730; 93005; 93041; G0378

== ENCOUNTER → 2016-07-16 | Outpatient (CLI) | payer MEDICARE, MEDICAID ==
[~2016-07-16] VITALS: Ht 180.3 cm; Wt 63.5 kg
[~2016-07-16] MED LIST changes: +CATHETER FLUSH 10 ML SYR IV PRN; +DIPH25TA31 PO; +FLUT100D2 IH; +LISI-556 PO; +METO-270 PO; +OXYC20TA3 PO; +OXYC20TA54 PO; +PANT40TA3 PO; +POLY255P PO; +REGADENOSON 0.4 MG/5 ML SYR (LEXISCAN) IV ONE; +RT-ALBUINH IH; +SUCR1TAB PO; +TOPI25TA10 PO
[2016-07-16 08:35] VITALS: BP 133/76
--- NOTE | 2016-07-17 09:22 | STRESS TEST ---
DATE OF SERVICE: 07/16/2016 PHARMACOLOGICAL NUCLEAR STRESS TEST REPORT ORDERING PHYSICIAN: Dr. Jignesh Macdonald. PRIMARY PHYSICIAN: Dr. Dennise Huerta. PRIMARY MECHANIC INSULATOR: Emma Dorantes MD DIAGNOSES: Chest pain, previous history of coronary artery bypass graft and coronary artery disease. PROCEDURE IN DETAILS: The patient was brought to the stress lab after informed consent was taken. Stress test was performed according to the Lexiscan protocol. A 0.4 mg of IV Lexiscan was given intravenously. Low grade exercise was performed previously. Baseline EKG showed sinus rhythm at 55 BPM. Blood pressure was 133/76 mmHg. Maximum heart rate was 92 BPM. Blood pressure was 133/76 mmHg. The patient did not have any chest pain, arrhythmias or ST-T wave abnormalities during the stress test. The patient had baseline ST depression and T-wave inversions. Review of the myocardial perfusion imaging was performed. The patient received 11 mCi Myoview for rest imaging and 32 mCi of Myoview for stress imaging. TID is 1.1. EF is 57%. Normal wall motion with normal EF. There is an apical, inferior, septal large severe fixed defect. There is also a reversible mild inferior, apical defect. SSS is 3, SDS is 3, SRS is 0. CONCLUSION: 1. Pharmacological stress test was negative for ischemia. 2. 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 Clinical correlation is recommended. Job ID: [id number] DocumentID: [id number] Dictated Date: 07/16/2016 12:12:47 Banquet Bartender Date: 07/16/2016 13:13:54 Dictated By: SUKHJINDER MACDONALD MD
== END ==
LOC: CARD 07:42
PROVIDERS: ATTEND Internal Medicine Interventional Cardiology
DX: R07.9 Chest pain, unspecified (principal); I25.10 Atherosclerotic heart disease of native coronary artery without angina pectoris
CPT/HCPCS: 78452; 93017

== ENCOUNTER 2016-07-17 09:02 | Day surgery (SDC) | payer MEDICARE, MEDICAID ==
[2016-07-17] VITALS (11 sets, daily range): BP systolic 96–128; BP diastolic 58–88
[~2016-07-17] VITALS: Ht 180.3 cm; Wt 63.5 kg
[~2016-07-17 09:02] MED LIST changes: -CATHETER FLUSH 10 ML SYR IV PRN; -DIPH25TA31 PO; -FLUT100D2 IH; -METO-270 PO; -OXYC20TA3 PO; -OXYC20TA54 PO; -PANT40TA3 PO; -POLY255P PO; -REGADENOSON 0.4 MG/5 ML SYR (LEXISCAN) IV ONE; -RT-ALBUINH IH; -SUCR1TAB PO; -TOPI25TA10 PO
[2016-07-17] MEDS ORDERED: NS IV 1000 ML 1,000 ML ONE (09:07)
[2016-07-17] MEDS ORDERED: HEParin (CATH LAB) 2,000 ML IV ONE (09:07)
[2016-07-17] MEDS ORDERED: LIDOCAINE 1% INJ 20 ML (XYLOCAINE) VIAL ONE (09:07)
[2016-07-17] MEDS ORDERED: NS IV 1000 ML 1,000 ML IV SCH ×2 (09:16→12:12)
[2016-07-17] MEDS ORDERED: MIDAZOLAM 5 MG/5 ML (VERSED) VIAL ONE (09:57)
[2016-07-17] MEDS ORDERED: NITROGLYCERIN DRIP 25 MG/D5W 250 ML IV ONE (09:58)
[2016-07-17] MEDS ORDERED: VERAPAMIL 5 MG/2 ML (CALAN) VIAL IV ONE (09:58)
[2016-07-17] MEDS ORDERED: methylPREDNISolone 125 MG (Solu-MEDROL) VIAL ONE (09:58)
[2016-07-17] MEDS ORDERED: fentaNYL INJECTION 100 MCG/2 ML AMP ONE (09:58)
[2016-07-17] MEDS ORDERED: diphenhydrAMINE 50 MG/ML INJ (BENADRYL) ONE (09:58)
[2016-07-17] MEDS ORDERED: HEParin 1000 UNIT/ML (10ML VIAL) FOR BOLUS ONE (09:58)
[2016-07-17] MEDS ORDERED: PANT40TA3 PO (10:29)
[2016-07-17] MEDS ORDERED: ONDA8TAB13 PO (10:29)
[2016-07-17] MEDS ORDERED: META800T PO (10:29)
[2016-07-17] MEDS ORDERED: LISI-556 PO (10:29)
[2016-07-17] MEDS ORDERED: CLOP75TA28 PO (10:29)
[2016-07-17] MEDS ORDERED: VERA240T98 PO (10:29)
[2016-07-17] MEDS ORDERED: SUCR1TAB PO (10:29)
[2016-07-17] MEDS ORDERED: OXYC20TA3 PO (10:29)
[2016-07-17] MEDS ORDERED: METO-270 PO (10:29)
[2016-07-17] MEDS ORDERED: OXYC20TA54 PO (10:29)
[2016-07-17] MEDS ORDERED: TOPI25TA10 PO (10:29)
[2016-07-17] MEDS ORDERED: NITR0.4T SL (10:29)
[2016-07-17] MEDS ORDERED: DIPH25TA31 PO (10:39)
[2016-07-17] MEDS ORDERED: RT-ALBUINH IH (10:39)
[2016-07-17] MEDS ORDERED: POLY255P PO (10:39)
[2016-07-17] MEDS ORDERED: FLUT100D2 IH (10:39)
--- NOTE | 2016-07-17 10:55 | Cardiac Procedure Note-CS/ASA ---
Pre-Procedure Note Pre-Op Procedure Note H&P Reviewed The H&P was reviewed, patient examined and no changes noted. Date H&P Reviewed: Jul 17, 2016 Time H&P Reviewed: 10:00 Conscious Sedation Pre-Proced Time Reviewed: 10:00 ASA Class: 3 Airway Mallampati Classification: ([place] appropriate class) I. II. III, IV Lungs Heart ASA score ASA 1: a normal healthy patient ASA 2: a patient with a mild systemic disease (mid diabetes, controlled hypertension, obesity ASA 3: a patient with a severe systemic disease that limits activity (angina , COPD, prior Myocardial infarction) ASA 4: a patient with an incapacitating disease that is a constant threat to life (CHF, renal failure) ASA 5: a moribund patient not expected to survive 24 hrs. (ruptured aneurysm) ASA 6: a declared brain patient whose organs are being harvested. For emergent operations, add the letter E after the classification Grade 1 Sedation Plan: Analgesia, Amnesia, Plan communicated to team members, Discussed options with patient/fam, Discussed risks with patient/fam Note The patient is an appropriate candidate to undergo the planned procedure, sedation, and anesthesia. The patient immediately re-assessed prior to indication. Brooke MENDEZ MD Jul 17, 2016 10:55 am
[2016-07-17] MEDS ORDERED: ADENOSINE 3 MG/1 ML (ADENOSCAN) 30ML VIAL IV ONE (11:47)
--- NOTE | 2016-07-17 12:12 | Cardiology Post Procedure Note ---
Post-Procedure Note Physician (s)/Cnc Lathe Programmer (s) Physician Brooke MENDEZ MD Pre-Procedure Diagnosis Pre-Procedure Diagnosis: chest pain, CAD, CABG, Abnormal Nuclear stress test Post-Procedure Note Procedure Start Date: Jul 17, 2016 Procedure Start Time: 11:00 Name of Procedure: Coronary angiography, LHC, ALEX angiography, saphenous vein angiography, peripheral angiography with lower extremity runoff, FFR of the left circumflex artery. Findings/Procedure Note moderate disease in the mid left circumflex artery. FFR lowest reading 0.84. Acceptable FFR therefore PCI was deferred. Patent ALEX to a small caliber LAD with competitive flow. Patent first diagonal artery. Occluded RCA. Patent saphenous vein graft to the PDA, however GEGE 2 flow is noted in the graft with moderate stenosis at the distal anastomotic site. After the anastomosis PDA is small and diffusely diseased. Peripheral angiogram and bilateral lower extremity runoff does not show any severe disease in the lower extremity vasculature. fluoroscopy time 12.8 minutes. Fluoroscopy dose of 547 mgy. Anesthesia Type: Conscious Sedation Estimated blood loss (mL): 20 Contrast Amount: 220mL Post-Procedure Diagnosis Post-operative diagnosis: moderate coronary artery disease. Medical therapy. No severe PAD. Brooke MENDEZ MD Jul 17, 2016 12:12 pm
[2016-07-17] MEDS ORDERED: PATIENT MAY USE OWN MEDS, ALL PO SCH (12:15)
--- NOTE | 2016-07-17 13:15 | Cardiac Procedure Note-CS/ASA ---
Pre-Procedure Note Pre-Op Procedure Note H&P Reviewed The H&P was reviewed, patient examined and no changes noted. Date H&P Reviewed: Jul 17, 2016 Time H&P Reviewed: 10:00 Conscious Sedation Pre-Proced Time Reviewed: 10:00 ASA Class: 3 Airway Mallampati Classification: ([place] appropriate class) I. II. III, IV Lungs Heart ASA score ASA 1: a normal healthy patient ASA 2: a patient with a mild systemic disease (mid diabetes, controlled hypertension, obesity ASA 3: a patient with a severe systemic disease that limits activity (angina , COPD, prior Myocardial infarction) ASA 4: a patient with an incapacitating disease that is a constant threat to life (CHF, renal failure) ASA 5: a moribund patient not expected to survive 24 hrs. (ruptured aneurysm) ASA 6: a declared brain patient whose organs are being harvested. For emergent operations, add the letter E after the classification Grade 1 Sedation Plan: Analgesia, Amnesia, Plan communicated to team members, Discussed options with patient/fam, Discussed risks with patient/fam Note The patient is an appropriate candidate to undergo the planned procedure, sedation, and anesthesia. The patient immediately re-assessed prior to indication. Brooke MENDEZ MD Jul 17, 2016 1:15 pm
[2016-07-17] MEDS ORDERED: oxyCODONE ER 20 MG (OxyCONTIN CR) TAB PO NR (14:45)
--- NOTE | 2016-07-17 16:07 | Cardiology Discharge Summary ---
Diagnosis/Chief Complaint Date of Admission 07/17/2016 Date of Discharge 07/17/2016 Admission Diagnosis chest pain, coronary artery disease, history of CABG, abnormal nuclear stress test Final/Discharge Diagnosis Moderate LCX disease. Patent grafts, however diseased SVG to a small diseased PDA. Patent ALEX to small caliber LAD. Chief Complaint/HPI Chief Complaint/HPI Chest pain, CAD, CABG with 2 grafts, abnormal Nuclear Discharge Summary Procedures Coronary angiography, LHC, graft angiography Discharge Physical Examination stable Hospital Course stable Discussion & Recommendations Discussion stable Follow up appt.: follow up with outpatient mini lab operator in 10-14 days Dicharge Diet: Cardiac Diet Activity as Tolerated: Yes Home Medications Reviewed patient Home Medication Reconciliation Form Discharge Home Medications: Reviewed and agree with Discharge Medication list on patient's Discharge Instruction sheet Condition at discharge stable Brooke MENDEZ MD Jul 17, 2016 4:07 pm
--- NOTE | 2016-07-17 16:14 | Discharge Inst-Post CATH ---
Discharge Inst-CATH Post Cardiac Cath D/C Inst Follow Up/Plan follow up with cardiology in 10-14 days CARDIAC CATH DISCHARGE INSTRUCTIONS *Hold Metformin for 48 hours post heart cath. ACTIVITY * Go Home directly and rest. * Limit activity of the leg (or wrist if it was used) for 7 days including aerobics, swimming, jogging, bicycling, etc. * Restrict stair-climbing for 7 days if possible, if not, climb up with your non -cath leg, then bring together on the same step. * Avoid lifting, pushing, pulling or excessive movement of the affected extremity for 7 days. * Customary sexual activity may be resumed after 2 days-use caution not to use a position that strains or causes pain to the affected extremity. * No driving for 24 hours. * NO SMOKING. * Avoid straining for bowel movements for 7 days. * Gentle walking on level ground is allowed. * Returning to work will depend on the type of procedure and the results. Your doctor will discuss this with you. CALL YOUR DOCTOR FOR ANY OF THE FOLLOWING: *If bleeding from the puncture site occurs- Apply gentle pressure to site with clean cloth and call your doctor or EMS. * If a knot or lump forms under the skin, increases in size, or causes pain. * If bruising appears to be worsening or moving further down your leg instead of disappearing. * Temperature above 101 F. CARE OF YOUR GROIN INCISION; * Bruising or purple discoloration of the skin near the puncture site is common. * You may shower only, no bathtub bathing for 5 days. Be careful to avoid slipping as your leg may feel stiff. * If a closure device was used on your femoral artery, please see the attached guide regarding care of the device and your leg. * REMOVE the dressing from your groin the next day after your procedure in the shower. CARE OF YOUR WRIST INCISION; * Bruising or purple discoloration of the skin near the puncture site is common. * You may shower. * DO NOT submerge wrist. * Remove dressing in 24 hours. Brooke MENDEZ MD Jul 17, 2016 4:14 pm
--- NOTE | 2016-07-18 07:59 | CARDIAC CATHETERIZATION ---
DATE OF SERVICE: 07/17/2016 CORONARY ANGIOGRAPHY INDICATION: Chest pain, history of coronary artery disease status post CABG, abnormal nuclear stress test, Lower extremity claudication R>L PREOPERATIVE DIAGNOSES: Prolonged episode of chest pain, history of coronary artery disease status post CABG, abnormal nuclear stress test and severe lower extremity claudication, right worse than left. POSTOPERATIVE DIAGNOSES: Moderate coronary artery disease, patent grafts. No severe PAD. HISTORY OF PRESENT ILLNESS: This is a 46-year-old gentleman who has previous history of coronary artery disease and PAD. He has a history of CABG with 2 grafts with ALEX to the LAD and saphenous vein graft to the PDA. The patient also has significant PAD with bilateral kissing stents in the common iliac artery. Apparently, he had femoral access complication, therefore, a patch was placed in the right femoral artery. The patient presented with prolonged episode of chest pain. Had an abnormal nuclear stress test. He also complained of significant lower extremity claudication with right extremity, worse than left. Therefore, we decided to perform coronary angiography and peripheral angiography. PROCEDURES PERFORMED: 1. Coronary angiography. 2. Left heart catheterization. 3. ALEX angiography. 4. Saphenous vein angiography. 5. Abdominal aortogram with bilateral lower extremity runoff. COMPLICATIONS: None. SPECIMENS: None. ESTIMATED BLOOD LOSS: 20 mL. ANTICOAGULATION: IV heparin. CONTRAST: 220 mL of Omnipaque. FLUOROSCOPY TIME: 10.1 minutes. FLUOROSCOPY DOSE: 547 mGy. PROCEDURE DETAILS: The patient was brought to the agriculture laborer after informed consent was taken. All the risks and complications were explained in detail. The patient was draped and prepped in the usual sterile fashion. We gained the access with 6-[place] sheath in the left femoral artery. Right coronary artery, saphenous vein graft, ALEX was engaged with JR4 catheter. Left coronary system was engaged with JL4 catheter. Peripheral angiography was performed with pigtail catheter. FINDINGS: 1. Left heart catheterization: Aortic pressure 102/53 mmHg. LV pressure 108/2 mmHg. LVEDP was 16 mmHg. Normal LV function with no wall motion abnormalities. No gradient across the aortic valve. 2. RCA totally occluded at the origin. 3. Saphenous vein graft to the PDA. Spatent, but slow flow (GEGE II flow noted in the graft with significant 30% diffuse disease in the graft). There is at least 50 to 60% distal anastomotic site stenosis. It attaches to the PDA, which is small vessel less than 1.5 mm, also has diffuse disease. 4. ALEX angiography. The ALEX is a very small vessel, with no proximal or distal anastomotic site disease. It supplies a very small caliber vessel, which is likely the LAD with competitive flow. 5. LAD and left circumflex artery has separate ostia. There is pyhrchzl-nn-dacvdq proximal LAD disease, which is around 60%. Comparative flow is noted in a small caliber LAD. There is a small caliber diagonal artery, which is patent. 6. The left circumflex artery has moderate disease in the mid obtuse marginal artery (50-60% stenosis). 7. Distal abdominal aortogram/bilateral lower extremity runoff was performed for significant claudication. A peripheral angiography showed no significant distal abnormal aortic disease. Patent stents in bilateral iliac artery as well as right external iliac artery. No significant disease in bilateral SITE HEAD, SFA. Mild disease is noted in bilateral SFA. Vjtk-ea-guzualni disease is noted in the left popliteal artery. Bck-cy-tzzor vessel runoff is noted below the knee bilaterally. However, the patient moved his leg, therefore, the visualization is decreased. RECOMMENDATIONS: 1. FFR to the left circumflex artery is recommended. 2. FFR details: We took an EBU 3.5 [place] catheter, IV heparin for anticoagulation and a pressure wire for guidewire. Baseline FFR was 0.99. Adenosine 140 mcg/kg/min was given for 2.5 minutes. Lowest FFR was 0.84, which is acceptable, therefore, PCI was deferred. The wire was taken out and post FFR angiography did not reveal any complication. CONCLUSIONS: 1. Patent ALEX to small caliber LAD. 2. Patent, but diseased SVG graft to small disease PDA. 3. Occluded RCA, bietynzo-pg-pxngps disease in proximal LAD. 4. Moderate left circumflex artery disease with acceptable FFR, therefore, PCI was deferred. 5. Ztow-kj-vfgcjnsa peripheral artery disease with no severe stenosis noted. Job ID: [id number] DocumentID: [id number] Dictated Date: 07/17/2016 17:05:48 Supply Chain Development Manager Date: 07/17/2016 22:58:13 Dictated By: SUKHJINDER MENDEZ MD MTDHawa
[2016-07-18] MEDS ORDERED: ASPIRIN E.C. 81 MG (ECOTRIN) TAB PO SCH (09:00)
[2016-07-18] MEDS ORDERED: CLOPIDOGREL 75 MG (PLAVIX) TABLET PO SCH (09:00)
== END 2016-07-17 17:30 | disposition home or self-care (01) ==
LOC: CATH 09:02 → SURG 12:25 → CATH 17:30
PROVIDERS: ATTEND Internal Medicine Interventional Cardiology
DX: R94.39 Abnormal result of other cardiovascular function study (principal); I25.10 Atherosclerotic heart disease of native coronary artery without angina pectoris; I70.213 Atherosclerosis of native arteries of extremities with intermittent claudication, bilateral legs; I25.82 Chronic total occlusion of coronary artery; R07.89 Other chest pain; Z95.1 Presence of aortocoronary bypass graft; Z79.899 Other long term (current) drug therapy
CPT/HCPCS: 75630; 85347; 87081; 93459; 93571

== ENCOUNTER → 2016-08-21 | Outpatient (CLI) | payer MEDICARE, MEDICAID ==
[~2016-08-21] MED LIST changes: +DIPH25TA31 PO; +FLUT100D2 IH; +METO-270 PO; +OXYC20TA3 PO; +OXYC20TA54 PO; +PANT40TA3 PO; +POLY255P PO; +RT-ALBUINH IH; +SUCR1TAB PO; +TOPI25TA10 PO
--- NOTE | 2016-08-21 13:38 | Diagnostic Imaging Report ---
PROCEDURE: MR imaging cervical spine without contrast. TECHNIQUE: Multiplanar, multisequence MR imaging of the cervical spine was performed without contrast. INDICATION: Chronic neck pain and right hand numbness. FINDINGS: There is satisfactory alignment of the posterior spinal line. There is susceptibility artifact from anterior plate and screws fixation fusion hardware of C5-C7 levels. There are preserved vertebral body heights. The discs demonstrate slight disc desiccation with no significant disc height loss, however. The foramen magnum and upper spinal canal are widely patent. No significant marrow signal abnormality is seen with the marrow demonstrating artifacts around the fusion hardware, however. The spinal cord has normal caliber, contour and signal. C2/C3: There is a small disc spur complex and mild facet hypertrophy with no spinal canal stenosis. There is bilateral mild foraminal stenosis. C3/C4: There is no significant disc herniation. No spinal canal stenosis. The facet joints and uncovertebral joints demonstrate mild degenerative changes more on the left side without foraminal stenosis. C4/C5: There is a minimal disc spur complex with no spinal canal stenosis. The foramina demonstrate moderate stenosis on the left and mild stenosis on the right. C5/C6 fusion level demonstrates no spinal canal stenosis. There is mild foraminal stenosis. C6/C7 fusion level demonstrates no spinal canal stenosis. No foraminal stenosis. C7/T1: There is no spinal canal stenosis or foraminal narrowing. IMPRESSION: There is no high-grade spinal canal or foraminal stenosis at any level. Dictated by: Dictated on workstation # [id number]
== END ==
LOC: RAD 08:51
PROVIDERS: ATTEND Orthopaedic Surgery
DX: M54.2 Cervicalgia (principal); G89.29 Other chronic pain; R20.2 Paresthesia of skin
CPT/HCPCS: 72141